=== PATIENT | female | born 1995 | race Caucasian/White ===

== ENCOUNTER 2017-04-05 13:20 | Emergency (ER) | payer BC ==
[2017-04-05 15:13] VITALS: BP 137/67
--- NOTE | 2017-04-05 15:35 | UC ---
Complaint Female HPI - HPI Summary HPI Summary: for one week she has had some external vaginal irritation. There has also started urinary frequency, hesitancy, dysuria and urgency. no fever, pelvic pain , flank pain or vomiting. she is sexually active and essentially always uses condoms. she has been with one partner for one year. - History Of Current Complaint Chief Complaint: UCGU Stated Complaint: URINARY Time Seen by Provider: 04/05/17 15:11 Hx Obtained From: Patient Hx Last Menstrual Period: 02/24/17 Onset/Duration: Gradual Onset, Lasting Days Timing: Constant, Lasting Days Severity Initially: Moderate Severity Currently: Moderate Character: Not Applicable Aggravating Factor(s): Urination Alleviating Factor(s): Nothing Associated Signs And Symptoms: Positive: Negative. Negative: Vaginal Bleeding/ Discharge, Vaginal Discharge, Nausea, Vomiting(# Of Episodes =) - Allergies/Home Medications Allergies/Adverse Reactions: Allergies Allergy/AdvReac Type Severity Reaction Status Date / Time No Known Allergies Allergy Verified 04/05/17 15:13 Home Medications: Home Medications Drospirenone-Ethinyl Estradiol [Ocella 3-0.03 mg] 1 tab PO DAILY 04/05/17 [ History Confirmed 04/05/17] busPIRone TAB* [Buspar TAB*] 5 mg PO SEE INSTRUCTIONS PRN 04/05/17 [History Confirmed 04/05/17] PMH/Surg Hx/FS Hx/Imm Hx Previously Healthy: No - prior uti. - Surgical History Surgical History: Yes Surgery Procedure, Year, and Place: [facility] teeth - Family History Known Family History: Positive: Other - no related family history. - Social History Occupation: Student Alcohol Use: Occasionally Substance Use Type: None Smoking Status (MU): Former Smoker Type: eCigarettes When Did the Patient Quit Smoking/Using Tobacco: week of 03 29 2017 Review of Systems Genitourinary: Dysuria, Frequency, Urgency All Other Systems Reviewed And Are Negative: Yes Physical Exam Triage Information Reviewed: Yes Appearance: Well-Appearing, No Pain Distress, Well-Nourished Vital Signs: Initial Vital Signs Temp 98.5 F 04/05/17 15:00 Pulse 88 04/05/17 15:00 Resp 18 04/05/17 15:00 BP 137/67 04/05/17 15:00 Vital Signs Reviewed: Yes Eyes: Positive: Conjunctiva Clear ENT: Positive: Normal ENT inspection, Pharynx normal Neck exam: Normal Neck: Positive: Supple, Nontender, No Lymphadenopathy Respiratory Exam: Normal Respiratory: Positive: Chest non-tender, Lungs clear, Normal breath sounds, No respiratory distress, No accessory muscle use. Negative: Respiratory distress, Crackles, Rhonchi, Stridor Cardiovascular Exam: Normal Cardiovascular: Positive: RRR, No Murmur Abdomen Description: Positive: Nontender, No Organomegaly, Soft Musculoskeletal Exam: Normal Musculoskeletal: Positive: Strength Intact, ROM Intact, No Edema Neurological Exam: Normal Neurological: Positive: Alert, Muscle Tone Normal. Negative: Fatigued Psychological Exam: Normal Skin: Negative: rashes Complaint Female Dx - Course Course Of Treatment: low risk for pid or std. she was given option for pelvic but did not feel it was necessary. she agrees to return for any worsening or new symptoms. - Differential Dx/Diagnosis Provider Diagnoses: yeast infection. uti./ Discharge - Discharge Plan Condition: Good Disposition: HOME Prescriptions: Fluconazole 100 MG TAB* [Diflucan 100 MG TAB*] 100 mg PO DAILY #3 tab Nitrofurantoin Monohyd Macro [Macrobid] 100 mg PO BID #20 cap Patient Education Materials: Urinary Tract Infection in Women (ED) Additional Instructions: return here for any worsening.
--- NOTE | 2017-04-08 07:19 | UC ---
Progress - Progress Note Progress Note: Urine culture negative. Stop antibiotics.
== END 2017-04-05 15:48 | disposition home or self-care (01) ==
LOC: UCCORT 13:20
DX: N39.0 Urinary tract infection, site not specified (principal); B37.3 Candidiasis of vulva and vagina; Z32.02 Encounter for pregnancy test, result negative; Z87.891 Personal history of nicotine dependence
CPT/HCPCS: 81003; 84702; 87086; 99202; G0463